=== PATIENT | male | born 1990 | race Caucasian/White ===

== ENCOUNTER 2017-04-18 16:17 | Emergency (ER) | payer OTHER ==
[~2017-04-18] VITALS: Ht 167.6 cm; Wt 81.7 kg
[~2017-04-18 16:17] MED LIST: IBUPROFEN 600600 M1 PO; LEXAPRO 10 MG T10 M1 PO; PREDNISONE 20 M20 MG PO; TESSALON PERLE100 MG PO; VENTOLIN HFA 1818 GM INH
[2017-04-18] MEDS ORDERED: LEXAPRO 10 MG T10 M1 PO ×2 (16:40→16:49)
[2017-04-18] MEDS ORDERED: HYDROXYZINE HCL25 M1 PO (16:49)
[2017-04-18 17:02] VITALS: BP 127/73
== END 2017-04-18 17:09 | disposition home or self-care (01) ==
LOC: ER 16:17
DX: F41.0 Panic disorder [episodic paroxysmal anxiety] (principal); F32.9 Major depressive disorder, single episode, unspecified; F17.210 Nicotine dependence, cigarettes, uncomplicated; F10.99 Alcohol use, unspecified with unspecified alcohol-induced disorder

== ENCOUNTER 2017-06-22 15:03 | Emergency (ER) | payer OTHER ==
[~2017-06-22] VITALS: Ht 165.1 cm; Wt 79.4 kg
[~2017-06-22 15:03] MED LIST changes: +HYDROCODONE-AP1 EAC6 PO; +HYDROXYZINE HCL25 M1 PO; +ONDANSETRON HCL4 M2 PO
[2017-06-22 15:06] VITALS: BP 136/84
[2017-06-22] MEDS ORDERED: VENTOLIN HFA 1818 GM INH (15:29)
== END 2017-06-22 15:36 | disposition home or self-care (01) ==
LOC: ER 15:03
DX: J45.909 Unspecified asthma, uncomplicated (principal); F32.9 Major depressive disorder, single episode, unspecified; F17.210 Nicotine dependence, cigarettes, uncomplicated

== ENCOUNTER 2017-07-13 19:58 | Emergency (ER) | payer OTHER ==
[~2017-07-13] VITALS: Ht 165.1 cm; Wt 81.7 kg
[2017-07-13 21:29] LABS: HEMATOCRIT 46.4 % (42.0-52.0); MCH 28.1 pg (26.0-34.0); MCHC 34.5 g/dL (28.0-37.0); MCV 81.4 fL (80.0-100.0); RBC 5.7 mil/uL (4.50-6.00); RDW 13.4 % (10.5-14.5); WBC 9.6 thou/uL (4.0-11.0)
[2017-07-13 21:36] LABS: CREATININE 1.1 mg/dL (0.7-1.3); POTASSIUM 3.7 mmol/L (3.5-5.1)
[2017-07-13 21:49] LABS: TOTAL BILIRUBIN 0.6 mg/dL (<0.1-1.0); TOTAL PROTEIN 7.3 g/dL (6.4-8.2)
[2017-07-13 22:45] VITALS: BP 120/62
[2017-07-13] MEDS ORDERED: OSELB75 PO (22:49)
== END 2017-07-13 23:15 | disposition home or self-care (01) ==
LOC: ER 19:58
PROVIDERS: Emergency Medicine
DX: J06.9 Acute upper respiratory infection, unspecified (principal); R53.1 Weakness; F32.9 Major depressive disorder, single episode, unspecified; F17.210 Nicotine dependence, cigarettes, uncomplicated; Z90.49 Acquired absence of other specified parts of digestive tract

== ENCOUNTER 2017-07-24 17:23 | Emergency (ER) | payer OTHER ==
[~2017-07-24] VITALS: Ht 165.1 cm; Wt 77.1 kg
[~2017-07-24 17:23] MED LIST changes: +OSELB75 PO
[2017-07-24 18:39] LABS: URINE BILIRUBIN NEGATIVE (Negative); URINE BLOOD NEGATIVE (Negative); URINE CLARITY CLEAR; URINE COLOR YELLOW; URINE GLUCOSE-RANDOM* NEGATIVE (Negative); URINE KETONES NEGATIVE (Negative); URINE LEUKOCYTES-REFLEX NEGATIVE (Negative); URINE NITRITE-REFLEX NEGATIVE (Negative); URINE PROTEIN (DIPSTICK) NEGATIVE (Negative); URINE UROBILINOGEN 0.2 E.U./dl (0.2-1.0)
[2017-07-24 18:51] LABS: ABSOLUTE NEUTROPHILS 2.6 thou/uL (1.4-8.2); BASOPHILS 0.9 % (0.0-2.0); EOSINOPHILS 1.5 % (0.0-3.0); HEMATOCRIT 47.7 % (42.0-52.0); HEMOGLOBIN 16.1 gm/dL (14.0-18.0); LYMPHOCYTES 42.5 % (24.0-44.0); MCH 27.8 pg (26.0-34.0); MCHC 33.7 g/dL (28.0-37.0); MCV 82.3 fL (80.0-100.0); MONOCYTES 6.9 % (1.0-8.0); PLATELET COUNT 247 thou/uL (150-400); POLYS 48.2 % (36.0-66.0); RDW 13.5 % (10.5-14.5); WBC 5.4 thou/uL (4.0-11.0)
[2017-07-24 18:59] LABS: CALCIUM 9.1 mg/dL (8.5-10.1); POTASSIUM 3.4 mmol/L (3.5-5.1)
[2017-07-24] MEDS ORDERED: NAPROSYN500 MG PO (21:17)
[2017-07-24 22:29] VITALS: BP 134/78
== END 2017-07-24 22:30 | disposition home or self-care (01) ==
LOC: ER 17:23
PROVIDERS: Emergency Medicine
DX: G89.18 Other acute postprocedural pain (principal); R10.32 Left lower quadrant pain; Z90.49 Acquired absence of other specified parts of digestive tract; F32.9 Major depressive disorder, single episode, unspecified; F17.210 Nicotine dependence, cigarettes, uncomplicated

== ENCOUNTER 2017-12-19 07:29 | Emergency (ER) | payer OTHER ==
[~2017-12-19] VITALS: Ht 165.1 cm; Wt 77.1 kg
[~2017-12-19 07:29] MED LIST changes: +NAPROSYN500 MG PO
[2017-12-19] MEDS ORDERED: TUSSIONEX PENN115 ML PO (08:17)
[2017-12-19] MEDS ORDERED: PROVENTIL HFA6.7 G1 INH (08:17)
== END 2017-12-19 08:58 | disposition home or self-care (01) ==
LOC: ER 07:29
DX: J02.8 Acute pharyngitis due to other specified organisms (principal); B97.89 Other viral agents as the cause of diseases classified elsewhere; J06.9 Acute upper respiratory infection, unspecified; F32.9 Major depressive disorder, single episode, unspecified; F17.210 Nicotine dependence, cigarettes, uncomplicated; Z90.49 Acquired absence of other specified parts of digestive tract

== ENCOUNTER 2019-02-13 11:02 | Emergency (ER) | payer OTHER ==
[~2019-02-13] VITALS: Ht 172.7 cm; Wt 72.6 kg
[~2019-02-13 11:02] MED LIST changes: +PROVENTIL HFA6.7 G1 INH; +TUSSIONEX PENN115 ML PO
[2019-02-13 11:06] VITALS: BP 113/88
== END 2019-02-13 11:55 | disposition home or self-care (01) ==
LOC: ER 11:02
DX: F32.9 Major depressive disorder, single episode, unspecified (principal); F41.1 Generalized anxiety disorder; F17.210 Nicotine dependence, cigarettes, uncomplicated; Z90.49 Acquired absence of other specified parts of digestive tract; Z76.0 Encounter for issue of repeat prescription

== ENCOUNTER 2020-07-23 13:17 | Emergency (ER) | payer OTHER ==
[~2020-07-23] VITALS: Ht 167.6 cm; Wt 70.3 kg
[2020-07-23 16:46] VITALS: BP 126/75
== END 2020-07-23 16:25 | disposition home or self-care (01) ==
LOC: ER 13:17
DX: S61.012A Laceration without foreign body of left thumb without damage to nail, initial encounter (principal); F17.210 Nicotine dependence, cigarettes, uncomplicated; Z90.49 Acquired absence of other specified parts of digestive tract; W22.8XXA Striking against or struck by other objects, initial encounter; Y93.89 Activity, other specified; Y92.89 Other specified places as the place of occurrence of the external cause; Y99.8 Other external cause status